=== PATIENT | female | born 1970 | race Asian ===

== ENCOUNTER 2017-01-21 08:06 | Emergency (ER) | payer MEDICAID ==
[2017-01-21 08:18] VITALS: BP 150/99; PULSE 98; RESP 16; TEMP 98.1; O2SAT 98
[2017-01-21 08:29] LABS: COLOR YELLOW; LEUKOCYTE ESTERASE,URINE NEGATIVE (NEGATIVE); NITRITE,URINE NEGATIVE (NEGATIVE); PH,URINE 6.5 (5.0-7.5)
[2017-01-21 08:34] LABS: MUCUS TRACE /lpf (NONE-1+)
[2017-01-21 08:35] LABS: WBC,URINE 0-1 /hpf (0-3)
[2017-01-21] MEDS ORDERED: IBUPROFEN 600 MG TAB PO ONE (08:49)
--- NOTE | 2017-01-21 09:25 | EDPHY ---
H & P Time Seen by Provider: 01/21/17 08:18 HPI/ROS: This patient is [place] speaking only with translation by her daughter. She complains of low back pain left lumbar more than right lumbar location onset yesterday mid day. She noticed this between standing and sitting with gradual onset. The pain radiates slightly to her buttock and describes primarily achy in nature with occasional sharp component with movement. 7/10 peak intensity, currently 5/10. She took Tylenol yesterday with minimal improvement and notes no other exacerbating factors. She denies any acute injury. She does not recall having this pain before. ROS: Constitutional: No fevers or chills. Pulmonary: No shortness of breath or pleuritic pain Cardiovascular: No chest pain GI: No abdominal pain, nausea or vomiting. : No hematuria, dysuria, frequency or urgency Neuro: No numbness tingling or focal weakness. No bowel or bladder incontinence. 7 point ROS is otherwise negative. Past Medical/Surgical History: Otherwise healthy Smoking Status: Never smoked Physical Exam: Physical Exam Vital signs are normal. General: No acute distress Lungs: Clear to auscultation bilaterally. No respiratory distress. Cardiac: Regular rate and rhythm with no murmur gallop rub. No pulsatile masses on belly exam Back: Mild midline lumbar tenderness with more prominent left paraspinous muscular tenderness. She has limited range of motion and back extension but maintains good range of motion in forward flexion lateral flexion. Straight leg raise is negative bilaterally. Skin: No rash or pallor. Neuro: Alert and oriented x3 with no sensorimotor deficits. She maintains 5/5 strength in great toe dorsiflexion plantar flexion bilaterally. 2+ symmetric patellar and Achilles DTRs are maintained bilaterally. Initial differential diagnosis: Bony pathology, disc herniation, low back strain, UTI Constitutional: Initial Vital Signs Temperature (C) 36.7 C 01/21/17 08:12 Heart Rate 98 01/21/17 08:12 Respiratory Rate 16 01/21/17 08:12 Blood Pressure 150/99 H 01/21/17 08:12 O2 Sat (%) 98 01/21/17 08:12 O2 Delivery Mode Room Air Allergies/Adverse Reactions: No Known Allergies Allergy (Unverified 01/21/17 08:17) Home Medications: Medication Instructions Recorded Ibuprofen [Motrin (*)] 600 mg PO Q6 PRN #30 tab 01/21/17 Methocarbamol [Robaxin 750 mg (*)] 750 - 1,500 mg PO QID PRN #30 tab 01/21/17 MDM/Departure - MDM Diagnostics: Lumbar spine PA and lateral: Negative for bony abnormality or disc height loss by my interpretation. No lateral flexion at the left consistent with muscle spasm Imaging Results: Imaging Impressions Lumbar Spine X-Ray 01/21/17 08:48 Impression: Normal except for minimal dextrocurvature (which may be due to muscle spasm or positioning). Imaging: I viewed and interpreted images myself Medications Given: Discontinued Medications Ibuprofen (Motrin) 600 mg PO EDNOW ONE Stop: 01/21/17 08:50 Last Admin: 01/21/17 09:26 Dose: 600 mg ED Course/Re-evaluation: Studies: Urinalysis is normal. Been benign radiograph in UA and physical findings, findings are most consistent with low back strain. I counseled the patient regarding this and some than suggested stretching exercises that may help her symptoms. Will start her on ibuprofen, methocarbamol and Tylenol. She will follow up with primary care physician. No evidence of cauda equina, radiculopathy or other concerning findings today. - Depart Disposition: Home, Routine, Self-Care Clinical Impression: Lumbar strain Qualifiers: Encounter type: initial encounter Qualified Code(s): S39.012A - Strain of muscle, fascia and tendon of lower back, initial encounter Condition: Good Instructions: Low Back Strain (ED) Additional Instructions: DX: Low back strain Plan: Ibuprofen 400-600 mg per 6 hours regularly for the next week then as needed. Methocarbamol muscle relaxants as needed. Tylenol in addition as needed for pain. No driving alcohol or work on methocarbamol Starts daily stretches prior to taking muscle relaxants and Vicodin in the morning. 3-5 minutes each of: "Butterfly stretch," "Sphinx stretch", "pigeon stretch", and hamstring stretch. Avoid lifting more than 5-10 pounds until symptoms improve. Call your primary care physician for a followup appointment in 3-7 days. Go to the emergency department for worsening of your symptoms despite the treatment plan. Stand Alone Forms: Work Excuse Prescriptions: Ibuprofen [Motrin (*)] 600 mg PO Q6 PRN #30 tab PRN Reason: Pain Methocarbamol [Robaxin 750 mg (*)] 750 - 1,500 mg PO QID PRN #30 tab PRN Reason: Muscle Spasms Referrals: Unknown,Unknown [Primary Care Provider] - As per Instructions
== END 2017-01-21 09:40 | disposition home or self-care (01) ==
LOC: CED 08:06
DX: S39.012A Strain of muscle, fascia and tendon of lower back, initial encounter (principal); X58.XXXA Exposure to other specified factors, initial encounter
CPT/HCPCS: 72100-PO; 81003-PO; 81015-PO; 81025-PO